=== PATIENT | male | born 1960 | race Caucasian/White ===

== ENCOUNTER 2017-06-09 19:29 | Emergency (ER) | payer BC, SELFPAY ==
[2017-06-09 19:32] VITALS: BMI 32.3
[2017-06-09 19:45] LABS: Basophils % 0.5 % (0.1-2.0); Eosinophils # 0.2 K/mm3 (0.0-0.4); Eosinophils % 2.3 % (0.1-12.0); Hematocrit 48.5 % (42.0-52.0); Hemoglobin 16.3 g/dL (14.1-18.0); Lymphocytes % 23.1 K/mm3 (10-50); Mean Corpuscular HGB Conc 33.7 g/dL (31.8-35.4); Mean Corpuscular Hemoglobin 30.1 pg (27.0-31.2); Mean Corpuscular Volume 89.4 fl (80-94); Monocytes # 0.5 K/mm3 (0.1-1.0); Monocytes % 5.7 % (1.7-9.3); Neutrophils # 5.8 K/mm3 (1.8-7.8); Neutrophils % 68.5 % (37.0-80.0); Platelet Count 212 K/mm3 (142-424); Red Blood Count 5.42 M/mm3 (4.60-6.20); Red Cell Distribution Width 13.2 % (11.5-17.5); White Blood Count 8.5 K/mm3 (4.8-10.8)
[2017-06-09 20:08] LABS: Alanine Aminotransferase 38 U/L (12-78); Albumin Level 3.7 gm/dL (3.4-5.0); Alkaline Phosphatase 61 U/L (46-116); Anion Gap 13.6 mEq/L (5-15); Aspartate Amino Transferase 20 U/L (15-37); Bilirubin,Total 0.7 mg/dL (0.2-1.0); Blood Urea Nitrogen 20 mg/dL (7-18); CKMB Relative Index 0.6 U/L (0-4.0); Calcium 8.7 mg/dL (8.5-10.1); Carbon Dioxide 27 mmol/L (21.0-32.0); Chloride 105 mmol/L (98-107); Creatine Kinase 99 U/L (39-308); Creatine Kinase MB 0.6 mg/ml (0.0-3.6); Creatinine Clearance Estimated 82 mL/min (0-300); Creatinine,Serum 1.33 mg/dL (0.70-1.30); Estimated Glomerular Filt Rate 55 ml/min (>60); GFR (African American) 67 ML/MIN (>60); Globulin 3.6 gm/dl (1.3-3.2); Glucose 93 mg/dL (74-106); Potassium 3.6 mmoL/L (3.5-5.1); Sodium 142 mmol/L (136-145); Total Protein,Serum 7.3 gm/dL (6.4-8.2); Troponin I < 0.02 ng/ml (0.00-0.06)
[2017-06-09 21:44] VITALS: BP 109/71; PULSE 55; RESP 18; TEMP 36.7; O2SAT 93; BMI 32.3
--- NOTE | 2017-06-09 21:57 | HMH.EDEXTP ---
ED Disposition Clinical Impression: Paresthesia, Left upper limb pain Disposition: Home, Self-Care Condition on Discharge: Good Instructions: DI for Arm Pain, DI for Numbness/tingling Additional Instructions: Please call your family physician in the morning and schedule a follow up appointment within the next 4-5 days. Referrals: Provider,Referral, [Primary Care Provider] - Time of Disposition: 21:57 - Critical Care Critical Care Time: No Attestation: On 06/09/17, the high probability of a clinically significant, sudden or life threatening deterioration of the following system(s) required my full and direct attention, intervention and personal management. The time I documented below is in addition to time spent performing reported procedures but includes the following listed in this critical care notation. Medical Decision Making - Medical Records Medical records reviewed: Yes: I reviewed the patient's medical records. Vital Signs: 06/09/17 21:44 06/10/17 01:34 Temperature 98.1 F 98.8 F Temperature Source Oral Oral Pulse Rate 78 Pulse Rate [Left Radial] 55 L Respiratory Rate 18 16 Blood Pressure 118/68 Blood Pressure [Right Arm] 109/71 Blood Pressure Mean [Right Arm] 83 Blood Pressure Source Automatic Cuff Blood Pressure Source [Right Arm] Automatic Cuff Blood Pressure Position Sitting Blood Pressure Position [Right Arm] Supine 02 Sat by Pulse Oximetry 93 L Oxygen Delivery Method Room Air Room Air - Lab Data Lab results reviewed: Yes: I reviewed the patient's lab results. Lab Results 06/09/17 19:40: WBC 8.5, RBC 5.42, Hgb 16.3, Hct 48.5, MCV 89.4, MCH 30.1, MCHC 33.7, RDW 13.2, Plt Count 212, MPV 10.0, Neut % (Auto) 68.5, Lymph % (Auto) 23.1, Grundy % (Auto) 5.7, Eos % (Auto) 2.3, Baso % (Auto) 0.5, Neut # (Auto) 5.8, Lymph # (Auto) 2.0, Grundy # (Auto) 0.5, Eos # (Auto) 0.2, Baso # (Auto) 0.0 06/09/17 19:40: Sodium 142, Potassium 3.6, Chloride 105, Carbon Dioxide 27, Anion Gap 13.6, BUN 20 H, Creatinine 1.33 H, Estimated Creat Clear 82, Estimated GFR 55 L, Est GFR ( Amer) 67, Glucose 93, Calcium 8.7, Total Bilirubin 0.7, AST 20, ALT 38, Alkaline Phosphatase 61, Total Creatine Kinase 99, CK-MB (CK-2) 0.6, CK-MB (CK-2) Rel Index 0.6, Troponin I < 0.02, Total Protein 7.3, Albumin 3.7, Globulin 3.6 H, Albumin/Globulin Ratio 1.0 L Result diagrams: 06/09/17 19:40 06/09/17 19:40 - CT Data CT Scan: Head Time Received: 21:[address] Reviewed: Yes: I have reviewed the patient's CT results, I have viewed the radiologist's interpretation Findings Narrative: CT head/brain wo con HISTORY: Left arm weakness and numbness ITS.REASON: left upper extremity weakness/numbness/pain ORDERING PHYSICIAN: Mckay Jacobsen MD PATIENT AGE: 57 years COMPARISON: None TECHNIQUE: Axial images obtained without contrast. Brain and bone windows reviewed. FINDINGS: No midline shift, mass effect, intracranial hemorrhage, hydrocephalus, or extra-axial fluid collection is evident. The calvarium has an unremarkable appearance. No mastoid effusion. Mild ethmoid and sphenoid sinus mucosal thickening. IMPRESSION: 1. No acute intracranial finding. 2. Mild sinus disease. 3. There is no evidence of intracranial hemorrhage, focal mass, or acute territorial infarction. A negative CT does not exclude an acute CVA. A follow-up head CT or MRI is recommended if neurological symptoms persist . - ECG Data Tracing #1 I reviewed this ECG and interpreted as documented below: ECG normal with no acute: arrhythmias, ischemia, conduction abnormalities, chamber hypertrophy Normal Sinus Rhythm: Yes - Kimo Inquiry Pt receiving controlled substance: No - Reevaluation(s) Time: 21:50 Reevaluation #1: Patient appears medically stable, in no acute distress, with no active complaints at this time. Admission offered, but declined. Patient advised to follow up with plant senior manager, Dr Jarvis Reeys with
--- NOTE | 2017-06-09 22:08 | CT_ITS ---
CT head/brain wo con HISTORY: Left arm weakness and numbness ITS.REASON: left upper extremity weakness/numbness/pain ORDERING PHYSICIAN: Mckay Jacobsen MD PATIENT AGE: 57 years COMPARISON: None TECHNIQUE: Axial images obtained without contrast. Brain and bone windows reviewed. FINDINGS: No midline shift, mass effect, intracranial hemorrhage, hydrocephalus, or extra-axial fluid collection is evident. The calvarium has an unremarkable appearance. No mastoid effusion. Mild ethmoid and sphenoid sinus mucosal thickening. IMPRESSION: 1. No acute intracranial finding. 2. Mild sinus disease. 3. There is no evidence of intracranial hemorrhage, focal mass, or acute territorial infarction. A negative CT does not exclude an acute CVA. A follow-up head CT or MRI is recommended if neurological symptoms persist .
[2017-06-10 01:34] VITALS: BP 118/68; PULSE 78; RESP 16; TEMP 37.1; O2SAT 100
== END 2017-06-10 00:45 | disposition home or self-care (01) ==
PROVIDERS: Emergency Provider Emergency Medicine
DX: R20.2 Paresthesia of skin (principal); M79.602 Pain in left arm; I10 Essential (primary) hypertension; Z87.891 Personal history of nicotine dependence; Z79.899 Other long term (current) drug therapy
CPT/HCPCS: 70450; 80053; 82550; 82553; 84484; 85025; 93005; 99282

== ENCOUNTER → 2021-06-08 13:30 | Outpatient (CLI) | payer BC, SELFPAY ==
[2021-06-08 18:15] LABS: Blood Urea Nitrogen 19 mg/dl (9-20); Estimated Glomerular Filt Rate 68 ml/min (>60); GFR (African American) 82 ML/MIN (>60)
== END ==
PROVIDERS: PCP Family Medicine; Visit Provider Surgery
DX: Z01.812 Encounter for preprocedural laboratory examination (principal)
CPT/HCPCS: 36415; 82565; 84520

== ENCOUNTER → 2021-06-16 09:00 | Outpatient (CLI) | payer BC, SELFPAY ==
--- NOTE | 2021-06-16 09:00 | CT_ITS ---
FINAL REPORT CLINICAL HISTORY: lt groin pain X6 MONTHS-1 YEAR. NO PRIOR FINDINGS: CT OF THE ABDOMEN AND PELVIS WITH CONTRAST Axial CT images of the abdomen and pelvis were obtained after the administration of IV contrast. Coronal reformatted images were also obtained and reviewed.This study was performed with techniques to keep radiation doses as low as reasonably achievable (ALARA). Individualized dose reduction techniques using automated exposure control or adjustment of mA and/or kV according to the patient's size were employed. Abdomen: The lung bases are clear. The heart is normal in size. The liver has an unremarkable appearance, without evidence of mass or biliary ductal dilatation. The gallbladder is unremarkable. The spleen is unremarkable. No adrenal mass is present. The pancreas has an unremarkable appearance. The left kidney is normal. There is a right renal cyst measuring 37 mm. There is no evidence of hydronephrosis. The aorta is normal in caliber. There is no free fluid or adenopathy. No mass or abnormal fluid collection is seen. Pelvis: The appendix is normal. The prostate is enlarged. The urinary bladder is unremarkable. No inflammatory process is seen. There is no evidence of mass or adenopathy. There is no evidence of bowel obstruction. IMPRESSION: No evidence of acute intra-abdominal process. 37 mm right renal cyst. Enlarged prostate. Reviewed, Interpreted and Dictated by Lai Martinez III, MD Transcribed by Margarita Murrell Authenticated by Lai Martinez III, MD on 06/16/2021 11:45:38 AM [facility]
== END ==
PROVIDERS: PCP Family Medicine; Visit Provider Surgery
DX: R10.32 Left lower quadrant pain (principal)
CPT/HCPCS: 74177; Q9967

== ENCOUNTER 2022-05-08 14:43 | Emergency (ER) | payer BC, SELFPAY ==
[2022-05-08 14:50] VITALS: BP 148/101; PULSE 78; RESP 19; TEMP 37.2; O2SAT 98; BMI 33.2
[2022-05-08 15:10] LABS: Apearance,Urine Clear (Clear); Bilirubin,Urine 1+ (Negative); Blood, Urine Negative (Negative); Color,Urine Dark Yellow (Yellow); Glucose,Urine (UA) Negative (Negative); Ketones,Urine Negative (Negative); PH,Urine 5.5 (5.0-8.5); Protein,Urine 1+ (Negative); UTC Leukocyte Esterase,Urine Negative (Negative); UTC Nitrate,Urine Negative (Negative); Urobilinogen,Urine 0.2 EU/dl (0.2)
--- NOTE | 2022-05-08 15:46 | EXP.UTC ---
Discharge Plan Disposition Patient Disposition: Home, Self-Care Condition: Good Prescriptions Prescriptions: New prednisone [prednisone] 20 mg tablet 20 mg PO BID Qty: 10 0RF No Action tamsulosin 0.4 MG capsule 1 cap PO DAILY Label Comments: aripiprazole 5 MG tablet 1 tab PO DAILY Label Comments: Referrals Follow up/Referrals: Matty Ko [Primary Care Provider] - See instructions Clinical Impressions Clinical Impression: Low back pain Instructions Patient Instructions: DI for Low Back Pain Discharge ED Provider: Jorge Luis ([facility])[place] [facility] [place] General Stated complaint: RT Back pain Mode of Arrival: Ambulatory Source of Information: Patient Limitations: No Limitations Time Seen by Provider: 05/08/22 15:47 Description of Symptoms (Recalled from Triage Doc. by RN): PATIENT C/O RIGHT LOWER BACK PAIN THAT STARTED SUDDENLY THIS MORNING. HE REPORTS THE PAIN STARTED INITIALLY IN HIS RLQ AND RADIATED TO HIS BACK. HE STATES THAT WHEN THE PAIN HIT IT MADE HIM NAUSEOUS AND DIZZY. HEENT Symptoms (Recalled from RN notes): No Resp Symptoms (Recalled from RN notes): No Skin Symptoms (Recalled from RN notes): No MS Symptoms (Recalled from RN notes): No Functional Status (Recalled from RN notes): WNL History of Present Illness Provider Complaint: 62 yr old male presents for low rt side back pain. Pt states pain started in left lower quad and when pain started he became soa, nauseous and dizzy but those symptoms pasted. then pain started in rt lower back. pt states he has arthritis. denies pain or issues urinating or with bowels Related Data Home Medications Medication Instructions Recorded Confirmed aripiprazole 5 mg tablet 1 tab PO DAILY Depression 06/09/17 06/23/21 tamsulosin 0.4 mg capsule 1 cap PO DAILY prostate 06/09/17 06/23/21 Previous Rx's Medication Instructions Recorded prednisone 20 mg tablet 20 mg PO BID #10 tabs 05/08/22 Allergies Allergy/AdvReac Type Severity Reaction Status Date / Time No Known Allergies Allergy Verified 06/23/21 10:32 Worker's Comp Is this a Worker's Comp case?: No [facility] Disclaimer: The information contained in this section may have been updated after the patient was seen, as this information can be updated by other users. 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 ROS Obtained: Yes All systems reviewed & no additional complaints except as documented Constitutional Constitutional: Reports system reviewed and no additional complaints, except as documented, Reports as per HPI, Denies body ache, Denies chills and Denies fever(s) Eyes Eyes: Reports system reviewed and no additional complaints, except as documented ENT Ears, Nose, Mouth, and Throat: Reports system reviewed and no additional complaints, except as documented Cardiovascular Cardiovascular: Reports system reviewed and no additional complaints, except as documented, Denies chest pain, Denies chest pain at rest, Denies dyspnea on exertion, Denies irregular heart rhythm, Denies orthopnea, Denies palpitations, Denies rapid heart rate and Denies slow heart rate Respiratory Respiratory: Reports system reviewed and no additional complaints, except as documented, Reports shortness of breath (earlier today) and Denies dyspnea on exertion Gastrointestinal Gastrointestingal: Reports system reviewed and no additional complaints, except as documented, as per HPI and nausea Genitourinary Male Genitourinary: Reports system reviewed and no additional complaints, except as documented and Reports as per HPI Musculoskeletal Musculoskeletal: Reports system reviewed and no additional complaints, except as documented, Reports as per HPI and Reports back pain Neurologic Neurologic: Report
[2022-05-08 15:50] VITALS: BP 148/101; PULSE 78; RESP 19; TEMP 37.2; O2SAT 98
== END 2022-05-08 15:53 | disposition home or self-care (01) ==
PROVIDERS: Emergency Provider Nurse Practitioner Family; PCP Family Medicine
DX: M54.50 Low back pain, unspecified (principal)
CPT/HCPCS: 81003; 99212; 99213; G0463

== ENCOUNTER 2022-08-27 10:37 | Emergency (ER) | payer BC, SELFPAY ==
[2022-08-27 10:50] VITALS: BP 147/90; PULSE 78; RESP 17; TEMP 36.6; O2SAT 98; BMI 34.0
--- NOTE | 2022-08-27 11:12 | EXP.UTC ---
Discharge Plan Disposition Patient Disposition: Home, Self-Care Condition: Good Prescriptions Prescriptions: New polymyxin B sulf-trimethoprim [Polytrim] 10,000 unit- 1 mg/mL drops 2 drp ophthalmic (eye) Q6H 7 Days Qty: 10 0RF Rx Instructions: left eye while awake; do not exceed 6 doses in 24 hours azithromycin [Zithromax Z-Donaldo] 250 mg tablet See Rx Instructions .ROUTE .COMPLEX 5 Days Qty: 6 0RF Rx Instructions: For 250 mg dose pack: take 500 mg today (day 1), then 250 mg for 4 days (days 2-5) prednisone [prednisone] 20 mg tablet 20 mg PO BID 5 Days Qty: 10 0RF No Action tamsulosin 0.4 MG capsule 1 cap PO DAILY Label Comments: aripiprazole 5 MG tablet 1 tab PO DAILY Label Comments: prednisone [prednisone] 20 mg tablet 20 mg PO BID Qty: 10 0RF losartan 50 mg tablet 50 mg PO DAILY Label Comments: TAKE 1 TABLET BY MOUTH EVERY DAY FOR BLOOD PRESSURE Referrals Follow up/Referrals: Matty Ko [Primary Care Provider] - See instructions Activity Restrictions/Add. Instructions Additional Instructions/Restrictions: *Monitor Temp, Over the counter Motrin or Tylenol as directed/as needed Tylenol every 4 hours and Motrin every 6 hours (as long as your family doctor has told you that you can take it) for fever or pain. and straight to ER if unable to lower temp less than 101.0 after medication given *Warm salt water gargles may help to soothe the throat *Throat Lozenges? *Warm fluids like tea with honey may help to soothe the throat? *Sleep elevated *Humidifier/Vaporizer Wash hands before and after applying eye drops Follow up with your Eye Doctor if no improvement or any worsening of symptoms Your throat swab was sent for culture. Those results are typically sent to your primary care. Be sure to follow up in 2-3 days with your family doctor/primary care physician if no improvement so they can review those result and treat if necessary. If you don?t have a primary care doctor, I recommend you get one but in the mean time, you will have to return to a walk in clinic Follow up IMMEDIATELY for new or worsening symptoms or no Noticeable improvement over the next 48-72 hours. 911 for difficulty breathing or swallowing Clinical Impressions Clinical Impression: Sinusitis, Conjunctivitis Stand Alone Forms Stand Alone Forms: Work/School Release Instructions Patient Instructions: Sinusitis, Conjunctivitis, DI for Sinusitis, DI for Conjunctivitis Discharge ED Provider: Bernadette Rivero [facility] [place] General Stated complaint: possible pink eye, sore throat Mode of Arrival: Ambulatory Source of Information: Patient Limitations: No Limitations Time Seen by Provider: 08/27/22 11:12 Description of Symptoms (Recalled from Triage Doc. by RN): sore throat, left eye has pink eye HEENT Symptoms (Recalled from RN notes): Yes Resp Symptoms (Recalled from RN notes): No Skin Symptoms (Recalled from RN notes): No MS Symptoms (Recalled from RN notes): No Functional Status (Recalled from RN notes): n/a History of Present Illness Provider Complaint: Patient state that he has been having sinus pain and pressure, sore throat and woke up yesterday with his left eye red and matted shut States that today he was still not feeling well so he came in to get checked Related Data Home Medications Medication Instructions Recorded Confirmed aripiprazole 5 mg tablet 1 tab PO DAILY Depression 06/09/17 08/27/22 tamsulosin 0.4 mg capsule 1 cap PO DAILY prostate 06/09/17 08/27/22 losartan 50 mg tablet 50 mg PO DAILY High blood pressure 08/27/22 08/27/22 Previous Rx's Medication Instructions Recorded prednisone 20 mg tablet 20 mg PO BID #10 tabs 05/08/22 azithromycin 250 mg tablet See Rx Instructions PO .COMPLEX 5 08/27/22 (Zithromax Z-Donaldo) days #6 tabs polymyxin B sulfate 10,000 2 drp ophthalmic (eye) Q6H 7 days 08/27/22 unit-trimethoprim 1 mg/mL eye #10 m
[2022-08-27 11:14] LABS: UTC Strep Screen (Rapid) Negative (Negative)
[2022-08-27 11:33] VITALS: BP 147/90; PULSE 78; RESP 17; TEMP 36.6; O2SAT 98
== END 2022-08-27 11:32 | disposition home or self-care (01) ==
PROVIDERS: Emergency Provider Nurse Practitioner; PCP Family Medicine
DX: J01.90 Acute sinusitis, unspecified (principal); H10.32 Unspecified acute conjunctivitis, left eye; J02.9 Acute pharyngitis, unspecified
CPT/HCPCS: 87880; 99212; 99214; G0463

== ENCOUNTER 2023-02-02 15:57 | Emergency (ER) | payer MEDICARE, BC, SELFPAY ==
[2023-02-02] VITALS (12 sets, daily range): BP systolic 79–123; BP diastolic 61–83; PULSE 64–77; RESP 13–23; TEMP 36.4; O2SAT 95–99; BMI 36.0
--- NOTE | 2023-02-02 15:54 | ECG_ITS ---
APPROVED REPORT Exam: Resting ECG HR:71 bpm ECG Measurements Heart Rate 71 AXES NC 137 P -37 QRSd 86 QRS 78 QT 388 T 24 QTc 411 Conclusion SINUS RHYTHM NONSPECIFIC ST & T-WAVE ABNORMALITY BORDERLINE ECG UNCONFIRMED REPORT Electronically signed by : Antione Campa MD 02/03/2023 07:30:45
[2023-02-02 17:12] LABS: Basophils # 0.1 K/mm3 (0-0.2); Basophils % 0.5 % (0.1-2.0); Chloride 102 mmol/L (98-107); Eosinophils # 0.1 K/mm3 (0.0-0.4); Eosinophils % 1.1 % (0.1-12.0); Hematocrit 52.2 % (42.0-52.0); Hemoglobin 16.9 g/dL (14.1-18.0); Lymphocytes # 2.5 K/mm3 (0.7-4.5); Mean Corpuscular HGB Conc 32.4 g/dL (31.8-35.4); Mean Corpuscular Volume 92.4 fl (80-94); Monocytes # 0.7 K/mm3 (0.1-1.0); Monocytes % 6.6 % (1.7-9.3); Neutrophils # 7.1 K/mm3 (1.8-7.8); Neutrophils % 67.7 % (37.0-80.0); Platelet Count 244 K/mm3 (142-424); Red Blood Count 5.65 M/mm3 (4.60-6.20); White Blood Count 10.5 K/mm3 (4.8-10.8)
[2023-02-02 17:13] LABS: Potassium 3.8 mmoL/L (3.5-5.1); Sodium 141 mmol/L (136-145)
[2023-02-02 17:15] LABS: Alanine Aminotransferase 41 U/L (12-78); Alkaline Phosphatase 41 U/L (38-126); Anion Gap 13.8 mEq/L (5-15); Aspartate Amino Transferase 37 U/L (17-59); Bilirubin,Total 0.9 mg/dl (0.2-1.3); Blood Urea Nitrogen 30 mg/dl (9-20); Carbon Dioxide 29 mmol/L (22.0-30.0); Creatinine Clearance Estimated 76 mL/min (50-200); Estimated Glomerular Filt Rate 47 ml/min (>60); GFR (African American) 57 ML/MIN (>60)
[2023-02-02 17:16] LABS: Albumin/Globulin Ratio 1.2 (1.1-1.8); Calcium 8.8 mg/dl (8.4-10.2); Globulin 3.3 g/dL (1.3-3.2); Glucose 115 mg/dl (74-100); Total Protein,Serum 7.3 g/dl (6.3-8.2)
[2023-02-02 17:45] LABS: Free T4 (Free Thyroxine) 1.13 ng/dl (0.78-2.19)
[2023-02-02 17:57] LABS: Magnesium 1.8 mg/dl (1.6-2.3); Phosphorous 4.2 mg/dl (2.5-4.5)
--- NOTE | 2023-02-02 18:02 | PC.NURSE ---
contacted lab to check on status of troponin results- lab states approx 8 minutes left until results.
[2023-02-02 18:11] LABS: Troponin I < 0.01 ng/ml (0.00-0.034)
[2023-02-02 18:28] LABS: Thyroid Stimulating Hormone 2.71 uIU/mL (0.465-4.68)
[2023-02-02 18:56] LABS: Troponin I < 0.01 ng/ml (0.00-0.034)
--- NOTE | 2023-02-03 14:20 | HMH.EDGENADL ---
Discharge Plan Disposition Patient Disposition: Home, Self-Care Condition: Good Prescriptions Prescriptions: No Action tamsulosin 0.4 MG capsule 1 cap PO DAILY Patient Comments: aripiprazole 5 MG tablet 1 tab PO DAILY Patient Comments: prednisone [prednisone] 20 mg tablet 20 mg PO BID Qty: 10 0RF losartan 50 mg tablet 50 mg PO DAILY Patient Comments: TAKE 1 TABLET BY MOUTH EVERY DAY FOR BLOOD PRESSURE polymyxin B sulf-trimethoprim [Polytrim] 10,000 unit- 1 mg/mL drops 2 drp ophthalmic (eye) Q6H 7 Days Qty: 10 0RF Rx Instructions: left eye while awake; do not exceed 6 doses in 24 hours azithromycin [Zithromax Z-Donaldo] 250 mg tablet See Rx Instructions .ROUTE .COMPLEX 5 Days Qty: 6 0RF Rx Instructions: For 250 mg dose pack: take 500 mg today (day 1), then 250 mg for 4 days (days 2-5) prednisone [prednisone] 20 mg tablet 20 mg PO BID 5 Days Qty: 10 0RF Referrals Follow up/Referrals: Matty Ko [Primary Care Provider] - See instructions Activity Restrictions/Add. Instructions Additional Instructions/Restrictions: Please return to the emergency department if you experience any new or worsening symptoms. Please follow up with your PCP for recommendations regarding BP medication Clinical Impressions Clinical Impression: Orthostatic hypotension Stand Alone Forms Stand Alone Forms: Work/School Release Instructions Patient Instructions: DI for Syncope in Adults (Fainting), DI for Syncope in Children (Fainting) Discharge ED Provider: Saeed Medel Adult HPI General Chief complaint: Syncope Stated complaint: Syncopal episode Time Seen by Provider: 02/02/23 16:00 Mode of Arrival: EMS Source of Information: Patient Limitations: No Limitations Description of Symptoms (Recalled from ER Triage Doc. by RN): 62 yo M presents to ED with EMS for syncopal episode. EMS reports pt was at work walking, norma weak and dizzy, and almost fell to the ground. coworkers were able to lower pt to the ground, so he did not fall or hit his head. pt reports he had heart cath approx last week. pt has recent med changes associated with that. History of Present Illness HPI narrative: The patient presents with a chief complaint of syncope at work. 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 The patient regained consciousness at 3:15 PM. The patient denies any chest pain or palpitations during the episode. The patient has a history of a recent heart catheterization performed last Tuesday, which revealed arterial hardening but no blockages. The patient was started on blood pressure medication due to elevated blood pressure. The patient reports poor hydration habits and works in an air-conditioned environment where they stand all day. The patient's blood sugar was measured at 103 by EMS, and their blood pressure was initially low at 87/55 but increased to 113/75 upon arrival at the hospital. The patient denies any prior similar symptoms. The patient currently reports generalized weakness but no numbness. Related Data Home Medications Medication Instructions Recorded Confirmed aripiprazole 5 mg tablet 1 tab PO DAILY Depression 06/09/17 08/27/22 tamsulosin 0.4 mg capsule 1 cap PO DAILY prostate 06/09/17 08/27/22 losartan 50 mg tablet 50 mg PO DAILY High blood pressure 08/27/22 08/27/22 Previous Rx's Medication Instructions Recorded prednisone 20 mg tablet 20 mg PO BID #10 tabs 05/08/22 azithromycin 250 mg tablet See Rx Instructions PO .COMPLEX 5 08/27/22 (Zithromax Z-Donaldo) days #6 tabs polymyxin B sulfate 10,000 2 drp ophthalmic (eye) Q6H 7 days 08/27/22 unit-trimethoprim 1 mg/mL eye #10 mL drops (Polytrim) prednisone 20 mg tablet 20 mg PO BID 5 days #10 tabs 08/27/22 Allergies Allergy/AdvReac Type Severity Reaction Status Date / Time No Known Allergies Allergy Verified 02/02/23 16:06 [facility] Disclaimer: The information contained in this section may have been updated after the patient was seen, as this information can be updated by other users. 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 ROS Obtained: Yes Systems reviewed as appropriate & no additional complaints except as documented Physical Exam General General appearance: alert and in no apparent distress Head Head exam: atraumatic and normocephalic Eye Eye exam: Present normal appearance Neck Neck exam: Present normal inspection Chest Chest inspection: Present normal inspection and symmetric chest wall rise Respiratory Respiratory exam: Present normal lung sounds bilaterally; Absent respiratory distress Cardiovascular Cardiovascular exam: Present regular rate and normal rhythm Abdominal Exam Abdominal exam: Present soft Neurological Exam Neurological exam: Present alert and oriented X3 Psychiatric Psychiatric exam: Present normal affect and normal mood Skin Skin exam: Present warm and dry Medical Decision Making Medical Records Medical records reviewed: Yes I reviewed the patient's medical records. Kimo Inquiry Pt receiving controlled substance: No Vital Signs: 02/02/23 15:58 02/02/23 16:00 02/02/23 16:30 Temperature 97.6 F Temperature Source Oral Pulse Rate 71 70 Pulse Rate [Left Radial] 70 Respiratory Rate 17 14 20 Blood Pressure 100/81 L 101/68 L Blood Pressure [Right Arm] 115/76 Blood Pressure Mean Blood Pressure Mean [Right Arm] 89 02 Sat by Pulse Oximetry 98 98 96 02/02/23 17:00 02/02/23 17:08 02/02/23 17:10 Temperature Temperature Source Pulse Rate 69 68 70 Pulse Rate [Left Radial] Respiratory Rate 18 22 23 Blood Pressure 101/68 L 79/61 L 92/64 L Blood Pressure [Right Arm] Blood Pressure Mean Blood Pressure Mean [Right Arm] 02 Sat by Pulse Oximetry 97 99 97 02/02/23 17:30 02/02/23 18:00 02/02/23 18:30 Temperature Temperature Source Pulse Rate 64 66 74 Pulse Rate [Left Radial] Respiratory Rate 18 17 20 Blood Pressure 106/73 L 113/81 120/83 Blood Pressure [Right Arm] Blood Pressure Mean 81 Blood Pressure Mean [Right Arm] 02 Sat by Pulse Oximetry 97 96 95 02/02/23 19:00 02/02/23 19:30 02/02/23 19:49 Temperature 97.6 F Temperature Source Oral Pulse Rate 77 72 75 Pulse Rate [Left Radial] Respiratory Rate 17 13 18 Blood Pressure 116/75 121/81 123/74 Blood Pressure [Right Arm] Blood Pressure Mean 84 Blood Pressure Mean [Right Arm] 02 Sat by Pulse Oximetry 95 97 Lab Data Lab Results 02/02/23 16:00: WBC 10.5, RBC 5.65, Hgb 16.9, Hct 52.2 H, MCV 92.4, MCH 30.0, MCHC 32.4, RDW 14.0, Plt Count 244, MPV 11.0 H, Neut % (Auto) 67.7, Lymph % (Auto) 24.0, [place] % (Auto) 6.6, Eos % (Auto) 1.1, Baso % (Auto) 0.5, Neut # (Auto) 7.1, Lymph # (Auto) 2.5, [place] # (Auto) 0.7, Eos # (Auto) 0.1, Baso # (Auto) 0.1, Sodium 141, Potassium 3.8, Chloride 102, Carbon Dioxide 29, Anion Gap 13.8, BUN 30 H, Creatinine 1.50 H, Estimated Creat Clear 76, Estimated GFR 47 L, Est GFR ( Amer) 57 L, Glucose 115 H, Calcium 8.8, Phosphorus 4.2, Magnesium 1.8, Total Bilirubin 0.9, AST 37, ALT 41, Alkaline Phosphatase 41, Troponin I < 0.01, Total Protein 7.3, Albumin 4.0, Globulin 3.3 H, Albumin/Globulin Ratio 1.2, TSH 2.71, Free T4 1.13 02/02/23 18:17: Troponin I < 0.01 02/02/23 16:00 02/02/23 16:00 Orders (Tests/Meds): ED MEDICATIONS Discontinued Medications Generic Name Dose Route Start Last Admin Trade Name Freq PRN Reason Stop Dose Admin Sodium Chloride 10 ml 02/02/23 16:43 Sodium Chloride 0.9% 10ml Flush Syringe IV 03/04/23 16:42 NEEDED PRN Maintain IV Site ORDERS Category Date Time Status Complete Blood Count Auto Diff Stat Lab 02/02/23 16:00 Completed Comprehensive Metabolic Panel Stat Lab 02/02/23 16:00 Completed Free T4 (Free Thyroxine) Stat Lab 02/02/23 16:00 Completed MAG [Magnesium] Stat Lab 02/02/23 16:00 Completed PHOS [Phosphorous] Stat Lab 02/02/23 16:00 Completed TSH [Thyroid Stimulating Hormone] Stat Lab 02/02/23 16:00 Completed Troponin I Q2H Lab 02/02/23 16:00 Completed Troponin I Q2H Lab 02/02/23 18:17 Completed ECG initial Besson Routine Y 02/02/23 15:54 Completed Medical Decision Narrative: Patient with history and exam per above presenting for evaluation of syncopal event, precipitated by standing up and with recent changes in blood pressure medication Diagnoses considered include Conduction abnormality including long QT, Rdbyp-[id number]-Akuyd, heart block, tachydysrhythmia, sinus node dysfunction, aortic stenosis, HOCM, ACS, pulmonary embolism, carotid stenosis, ruptured AAA, orthostatic hypotension, hypoglycemia, hyperkalemia, anemia ED workup and treatment included: ED MEDICATIONS Discontinued Medications Generic Name Dose Route Start Last Admin Trade Name Freq PRN Reason Stop Dose Admin Sodium Chloride 10 ml 02/02/23 16:43 Sodium Chloride 0.9% 10ml Flush Syringe IV 03/04/23 16:42 NEEDED PRN Maintain IV Site ORDERS Category Date Time Status Complete Blood Count Auto Diff Stat Lab 02/02/23 16:00 Completed Comprehensive Metabolic Panel Stat Lab 02/02/23 16:00 Completed Free T4 (Free Thyroxine) Stat Lab 02/02/23 16:00 Completed MAG [Magnesium] Stat Lab 02/02/23 16:00 Completed PHOS [Phosphorous] Stat Lab 02/02/23 16:00 Completed TSH [Thyroid Stimulating Hormone] Stat Lab 02/02/23 16:00 Completed Troponin I Q2H Lab 02/02/23 16:00 Completed Troponin I Q2H Lab 02/02/23 18:17 Completed ECG initial Besson Routine Y 02/02/23 15:54 Completed Labs were independently interpreted by me, significant for no leukocytosis, no acute anemia, creatinine approximately baseline at 1.5, troponins undetectable x2 EKG was independently visualized and interpreted by me, significant for normal axis, normal sinus rhythm, no acute ST changes Symptoms at this time are thought to be most consistent with medication induced orthostatic hypotension Patient had improvement of symptoms after fluids and repeat evaluation I discussed my clinical impression with patient and answered all questions. At this time, given reassuring workup and exam, I discussed that I have a low index of suspicion for any acute pathology necessitating inpatient management. Specific return precautions were given, with understanding and agreement. Patient will follow up with primary care provider. He will decrease dose of blood pressure medications and follow-up closely with primary care provider Critical Care Critical Care Time Critical Care Time: No
== END 2023-02-02 19:50 | disposition home or self-care (01) ==
PROVIDERS: Emergency Provider Emergency Medicine; PCP Family Medicine
DX: I95.1 Orthostatic hypotension; R53.1 Weakness
CPT/HCPCS: 80053; 83735; 84100; 84439; 84443; 84484; 85025; 93005; 99283

== ENCOUNTER 2023-05-25 16:32 | Emergency (ER) | payer MEDICARE, BC, SELFPAY ==
[2023-05-25 16:34] VITALS: BP 122/87; PULSE 69; RESP 15; TEMP 36.9; O2SAT 94; BMI 37.5
--- NOTE | 2023-05-25 17:37 | ECG_ITS ---
APPROVED REPORT Exam: Resting ECG HR:65 bpm ECG Measurements Heart Rate 65 AXES NC 149 P 62 QRSd 93 QRS 70 QT 400 T 45 QTc 411 Conclusion SINUS RHYTHM NORMAL ECG UNCONFIRMED REPORT Electronically signed by : Antione Campa MD 05/27/2023 14:40:25
--- NOTE | 2023-05-25 18:41 | HMH.EDGENADL ---
Discharge Plan Disposition Patient Disposition: Home, Self-Care Prescriptions Prescriptions: No Action tamsulosin 0.4 MG capsule 1 cap PO DAILY Patient Comments: aripiprazole 5 MG tablet 1 tab PO DAILY Patient Comments: prednisone [prednisone] 20 mg tablet 20 mg PO BID Qty: 10 0RF losartan 50 mg tablet 50 mg PO DAILY Patient Comments: TAKE 1 TABLET BY MOUTH EVERY DAY FOR BLOOD PRESSURE polymyxin B sulf-trimethoprim [Polytrim] 10,000 unit- 1 mg/mL drops 2 drp ophthalmic (eye) Q6H 7 Days Qty: 10 0RF Rx Instructions: left eye while awake; do not exceed 6 doses in 24 hours azithromycin [Zithromax Z-Donaldo] 250 mg tablet See Rx Instructions .ROUTE .COMPLEX 5 Days Qty: 6 0RF Rx Instructions: For 250 mg dose pack: take 500 mg today (day 1), then 250 mg for 4 days (days 2-5) prednisone [prednisone] 20 mg tablet 20 mg PO BID 5 Days Qty: 10 0RF Referrals Follow up/Referrals: Matty Ko [Primary Care Provider] - See instructions Activity Restrictions/Add. Instructions Additional Instructions/Restrictions: At this time it was felt you are safe to be discharged home. If new or worsening symptoms please do not hesitate to return the emergency department. If symptoms persist please follow-up with your family doctor as you are able. Clinical Impressions Clinical Impression: Muscle cramping Discharge ED Provider: Vinny Hoffman General Adult HPI General Chief complaint: Weakness Stated complaint: low BP Time Seen by Provider: 05/25/23 18:00 Mode of Arrival: Ambulatory Source of Information: Patient Limitations: No Limitations Description of Symptoms (Recalled from ER Triage Doc. by RN): 63 yo M presents to ED with c/o low blood pressure. pt was at work and began to feel cramping in his right forearm. pt reports it lasted approx 5 mins. after that he went to nurses station, nurse at work checked pts BP and it was 79/43. pt reports that he sat down for approx 15-20 mins and his BP reading was 123/84. pt reports feeling weakness and lethargy. History of Present Illness HPI narrative: Patient is a 63-year-old male with past medical history of hypertension presents emergency department for evaluation of cramping in his arm. History is obtained by patient at bedside. Patient had a cramp in his arm at work in his right forearm lasting approximately 10 minutes. He presented to the nursing station where he was found that his blood pressure was low and he was transported here for continued evaluation. He does have a history of recurrent syncope that has been investigated by cardiology and has a heart monitor on. Denies trauma. No other acute complaints at this time. Related Data Home Medications Medication Instructions Recorded Confirmed aripiprazole 5 mg tablet 1 tab PO DAILY Depression 06/09/17 08/27/22 tamsulosin 0.4 mg capsule 1 cap PO DAILY prostate 06/09/17 08/27/22 losartan 50 mg tablet 50 mg PO DAILY High blood pressure 08/27/22 08/27/22 Previous Rx's Medication Instructions Recorded prednisone 20 mg tablet 20 mg PO BID #10 tabs 05/08/22 azithromycin 250 mg tablet See Rx Instructions PO .COMPLEX 5 08/27/22 (Zithromax Z-Donaldo) days #6 tabs polymyxin B sulfate 10,000 2 drp ophthalmic (eye) Q6H 7 days 08/27/22 unit-trimethoprim 1 mg/mL eye #10 mL drops (Polytrim) prednisone 20 mg tablet 20 mg PO BID 5 days #10 tabs 08/27/22 Allergies Allergy/AdvReac Type Severity Reaction Status Date / Time No Known Allergies Allergy Verified 02/02/23 16:06 [facility] Disclaimer: The information contained in this section may have been updated after the patient was seen, as this information can be updated by other users. 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 Obtained: Yes Systems reviewed as appropriate & no additional complaints except as documented Physical Exam General General appearance: alert and in no apparent distress Head Head exam: atraumatic and normocephalic Eye Eye exam: Present PERRL and EOMI ENT ENT exam: Present mucous membranes moist Neck Neck exam: Present normal inspection Chest Chest inspection: Present normal inspection and symmetric chest wall rise Respiratory Respiratory exam: Present normal lung sounds bilaterally; Absent respiratory distress Cardiovascular Cardiovascular exam: Present regular rate and normal rhythm Abdominal Exam Abdominal exam: Present soft Extremities Exam Extremities exam: Present normal inspection and other (5 out of 5 strength bilateral upper and lower extremities) Neurological Exam Neurological exam: Present alert and CN II-XII intact; Absent motor sensory deficit Psychiatric Psychiatric exam: Present normal affect Skin Skin exam: Present warm and dry Medical Decision Making Kimo Inquiry Pt receiving controlled substance: No Vital Signs: 05/25/23 16:34 05/25/23 18:45 05/25/23 19:42 Temperature 98.5 F 98.5 F Temperature Source Oral Oral Pulse Rate 66 61 Pulse Rate [Left Radial] 69 Respiratory Rate 15 15 Blood Pressure 131/91 H 129/87 Blood Pressure [Right Arm] 122/87 Blood Pressure Mean [Right Arm] 98 02 Sat by Pulse Oximetry 94 L 95 Oxygen Delivery Method Room Air Room Air Lab Data Lab Results 05/25/23 17:30: WBC 10.0, RBC 5.13, Hgb 16.0, Hct 46.4, MCV 90.4, MCH 31.2, MCHC 34.5, RDW 14.5, Plt Count 197, MPV 10.5 H, Neut % (Auto) 70.2, Lymph % (Auto) 20.6, [place] % (Auto) 6.9, Eos % (Auto) 1.6, Baso % (Auto) 0.7, Neut # (Auto) 7.0, Lymph # (Auto) 2.1, [place] # (Auto) 0.7, Eos # (Auto) 0.2, Baso # (Auto) 0.1, Sodium 137, Potassium 3.5, Chloride 104, Carbon Dioxide 27, Anion Gap 9.5, BUN 16, Creatinine 1.00, Estimated Creat Clear 117, Estimated GFR 75, Est GFR ( Amer) 91, Glucose 96, Calcium 8.3 L, Magnesium 1.9, Total Bilirubin 0.7, AST 32, ALT 30, Alkaline Phosphatase 50, Total Protein 6.6, Albumin 3.6, Globulin 3.0, Albumin/Globulin Ratio 1.2, TSH 1.94, Thyroxine (T4) 8.9 05/25/23 17:30 05/25/23 17:30 Orders (Tests/Meds): ORDERS Category Date Time Status CBC w/Auto Diff [Complete Blood Count Auto Diff] Stat Lab 05/25/23 17:30 Completed CMP [Comprehensive Metabolic Panel] Stat Lab 05/25/23 17:30 Completed MG [Magnesium] Stat Lab 05/25/23 17:30 Completed T4 (Thyroxine) Stat Lab 05/25/23 17:30 Completed TSH [Thyroid Stimulating Hormone] Stat Lab 05/25/23 17:30 Completed ECG initial Besson Routine Y 05/25/23 17:37 Completed ECG Data Tracing #1: Independently interpreted by me, rate is 65, rhythm is regular, axis normal, no ST elevation in anatomical contiguous leads, QTc 411. Medical Decision Narrative: In summary patient is a 63-year-old male with past medical history described above who presents emergency department for evaluation of pain and cramping and hypotension. Patient is hemodynamically stable nontoxic-appearing upon arrival, afebrile, normotensive. Patient has a nonfocal neurologic exam, no ongoing cramps. Differential includes critical electrolyte abnormality, among others. Workup will be conducted with hematologic labs. No additional interventions are indicated. Workup for CVA was considered but given nonfocal neurologic exam and no focal weakness or deficits will be deferred. Workup reviewed by me, hematologic labs are nonactionable. Patient had no episodes of hypotension in the emergency department. Given this it was felt that emergent causes of arm cramping were ruled out at this time patient is appropriate for outpatient management. Critical Care Critical Care Time Critical Care Time: No
[2023-05-25 18:45] VITALS: BP 131/91; PULSE 66; O2SAT 95
--- NOTE | 2023-05-25 18:57 | PC.NURSE ---
called lab spoke with Jefry states 10-11 minutes before labs will be back
[2023-05-25 18:59] LABS: Basophils # 0.1 K/mm3 (0-0.2); Basophils % 0.7 % (0.1-2.0); Eosinophils # 0.2 K/mm3 (0.0-0.4); Eosinophils % 1.6 % (0.1-12.0); Hematocrit 46.4 % (42.0-52.0); Lymphocytes # 2.1 K/mm3 (0.7-4.5); Lymphocytes % 20.6 % (10-50); Mean Corpuscular HGB Conc 34.5 g/dL (31.8-35.4); Mean Corpuscular Hemoglobin 31.2 pg (27.0-31.2); Mean Corpuscular Volume 90.4 fl (80-94); Mean Platelet Volume 10.5 fl (7.4-10.4); Monocytes # 0.7 K/mm3 (0.1-1.0); Monocytes % 6.9 % (1.7-9.3); Neutrophils % 70.2 % (37.0-80.0); Platelet Count 197 K/mm3 (142-424); Red Blood Count 5.13 M/mm3 (4.60-6.20); Red Cell Distribution Width 14.5 % (11.5-17.5)
[2023-05-25 19:00] LABS: Alanine Aminotransferase 30 U/L (12-78); Albumin Level 3.6 g/dl (3.5-5.0); Albumin/Globulin Ratio 1.2 (1.1-1.8); Alkaline Phosphatase 50 U/L (38-126); Anion Gap 9.5 mEq/L (5-15); Aspartate Amino Transferase 32 U/L (17-59); Bilirubin,Total 0.7 mg/dl (0.2-1.3); Blood Urea Nitrogen 16 mg/dl (9-20); Calcium 8.3 mg/dl (8.4-10.2); Carbon Dioxide 27 mmol/L (22.0-30.0); Chloride 104 mmol/L (98-107); Creatinine Clearance Estimated 117 mL/min (50-200); Estimated Glomerular Filt Rate 75 ml/min (>60); GFR (African American) 91 ML/MIN (>60); Glucose 96 mg/dl (74-100); Magnesium 1.9 mg/dl (1.6-2.3); Potassium 3.5 mmoL/L (3.5-5.1); Sodium 137 mmol/L (136-145); Total Protein,Serum 6.6 g/dl (6.3-8.2)
[2023-05-25 19:42] VITALS: BP 129/87; PULSE 61; RESP 15; TEMP 36.9; O2SAT 95
[2023-05-25 20:47] LABS: T4 (Thyroxine) 8.9 ug/dl (5.53-11.0)
[2023-05-25 21:01] LABS: Thyroid Stimulating Hormone 1.94 uIU/mL (0.465-4.68)
== END 2023-05-25 19:45 | disposition home or self-care (01) ==
PROVIDERS: Emergency Provider Emergency Medicine; PCP Family Medicine
DX: I95.9 Hypotension, unspecified (principal); R53.1 Weakness; R25.2 Cramp and spasm
CPT/HCPCS: 80053; 83735; 84436; 84443; 85025; 93005; 99285

== ENCOUNTER 2023-07-04 06:52 | Outpatient (CLI) | payer MEDICARE, BC, SELFPAY ==
--- NOTE | 2023-07-04 07:30 | MR_ITS ---
FINAL REPORT CLINICAL HISTORY: seizure protocol. EPISODES OF PASSING OUT. DIZZINESS AND BLURRED VISION, OVERALL WEAKNESS. COMPARISON: None FINDINGS: Multiplanar MR imaging of the brain was performed without and with contrast. There is mild age-appropriate atrophy. Scattered foci of increased T2 signal are seen in the cerebral white matter that have a nonspecific appearance but likely represent mild chronic ischemic/gliotic changes. There is no evidence of intracranial hemorrhage or mass. No abnormal ventricular dilatation is identified. There is no evidence of shift of the midline structures. No abnormal extra-axial fluid collection is seen. No area of abnormal restricted diffusion is identified. The posterior fossa and brainstem have an unremarkable appearance. No abnormal contrast enhancement is seen. Normal major vessel vascular flow voids are seen. IMPRESSION: Mild atrophy and chronic ischemic/gliotic changes. No acute intracranial abnormality. Reviewed, Interpreted and Dictated by Lai Martinez III, MD Transcribed by Yisel Mello Authenticated and [facility]
[2023-07-04 07:45] LABS: Blood Urea Nitrogen 19 mg/dl (9-20); Estimated Glomerular Filt Rate 75 ml/min (>60); GFR (African American) 91 ML/MIN (>60)
[2023-07-04 07:58] LABS: C-Reactive Protein 10.9 mg/L (0-4)
[2023-07-04 08:14] LABS: Erythrocyte Sedimentation Rate 12 mm/hr (0-20)
[2023-07-04] MEDS: SODIUM CHLORIDE 0.9% 10ML SYR (RAD ONLY) 10 ML IV (08:18)
[2023-07-04] MEDS: GADOTERIDOL INJ 17ML SYRINGE 22 ML IV (08:19)
[2023-07-04 08:58] LABS: Vitamin B12 327 pg/mL (239-931)
[2023-07-04 08:59] LABS: Folate 7.49 ng/mL
[2023-07-05 12:43] LABS: Rapid Plasma Reagin Ab Titer Non Reactive titer (NonRea<1:1)
== END 2023-07-04 23:59 | disposition home or self-care (01) ==
PROVIDERS: PCP Family Medicine; Visit Provider Nurse Practitioner Family
DX: R55 Syncope and collapse (principal); Z79.899 Other long term (current) drug therapy
CPT/HCPCS: 36415; 70553; 82565; 82607; 82746; 84443; 84520; 85651; 86140; 86593; A9576

== ENCOUNTER 2023-09-05 13:27 | Emergency (ER) | payer MEDICARE, BC, SELFPAY ==
[2023-09-05] VITALS (10 sets, daily range): BP systolic 90–133; BP diastolic 60–94; PULSE 69–70; RESP 15–18; TEMP 36.3–36.7; O2SAT 93–98; BMI 37.7
--- NOTE | 2023-09-05 13:28 | ECG_ITS ---
APPROVED REPORT Exam: Resting ECG HR:69 bpm ECG Measurements Heart Rate 69 AXES AL 162 P 130 QRSd 88 QRS 43 QT 384 T 36 QTc 403 Conclusion ELECTRONIC ATRIAL PACEMAKER NONSPECIFIC T-WAVE ABNORMALITY ABNORMAL RHYTHM ECG UNCONFIRMED REPORT Electronically signed by : ABIODUN TREVIÑO, 09/07/2023 05:26:19
--- NOTE | 2023-09-05 13:37 | PC.NURSE ---
[id number] per EMS
[2023-09-05 13:46] LABS: Basophils # 0.1 K/mm3 (0-0.2); Basophils % 0.8 % (0.1-2.0); Eosinophils # 0.1 K/mm3 (0.0-0.4); Eosinophils % 0.7 % (0.1-12.0); Hematocrit 51.1 % (42.0-52.0); Hemoglobin 16.8 g/dL (14.1-18.0); Lymphocytes # 1.9 K/mm3 (0.7-4.5); Lymphocytes % 18.6 % (10-50); Mean Corpuscular Hemoglobin 30.1 pg (27.0-31.2); Mean Corpuscular Volume 91.4 fl (80-94); Mean Platelet Volume 9.6 fl (7.4-10.4); Monocytes # 0.6 K/mm3 (0.1-1.0); Monocytes % 5.6 % (1.7-9.3); Neutrophils # 7.6 K/mm3 (1.8-7.8); Neutrophils % 74.3 % (37.0-80.0); Platelet Count 245 K/mm3 (142-424); Red Blood Count 5.59 M/mm3 (4.60-6.20); Red Cell Distribution Width 14.8 % (11.5-17.5); White Blood Count 10.2 K/mm3 (4.8-10.8)
--- NOTE | 2023-09-05 13:53 | PC.NURSE ---
Dr. Hoffman at BS for pt eval
[2023-09-05 13:56] LABS: Chloride 107 mmol/L (98-107); Potassium 3.6 mmoL/L (3.5-5.1); Sodium 139 mmol/L (136-145)
--- NOTE | 2023-09-05 13:56 | XR_ITS ---
FINAL REPORT TECHNIQUE: Single view chest CLINICAL HISTORY: syncope FINDINGS: A single view of the chest was obtained. The heart is enlarged. There is a left subclavian pacemaker in place. There are mild bibasilar opacities which represent atelectasis or pneumonia. There is no pneumothorax. Osseous structures are unremarkable. IMPRESSION: No acute cardiopulmonary process. Reviewed, Interpreted and Dictated by Lai Martinez III, MD Transcribed by Rosette Wells Authenticated and [facility]
--- NOTE | 2023-09-05 13:57 | ED_ITS ---
Discharge Plan Disposition Patient Disposition: Home, Self-Care Chief Complaint: Syncope Prescriptions Prescriptions: No Action famotidine 20 mg tablet 20 mg PO DAILY Patient Comments: TAKE 1 TABLET BY MOUTH TWICE DAILY FOR HEARTBURN OR GERD amlodipine 5 mg tablet 5 mg PO DAILY Patient Comments: TAKE 1 TABLET BY MOUTH EVERY DAY FOR BLOOD PRESSURE aspirin 81 mg tablet,delayed release (DR/EC) 81 mg PO DAILY atorvastatin 10 mg tablet 10 mg PO HS Patient Comments: TAKE 1 TABLET BY MOUTH DAILY tamsulosin 0.4 MG capsule 1 cap PO DAILY Patient Comments: aripiprazole 5 MG tablet 1 tab PO DAILY Patient Comments: losartan 50 mg tablet 50 mg PO DAILY Patient Comments: TAKE 1 TABLET BY MOUTH EVERY DAY FOR BLOOD PRESSURE Referrals Follow up/Referrals: Matty Ko [Primary Care Provider] - See instructions Activity Restrictions/Add. Instructions Additional Instructions/Restrictions: At this time it was felt you are safe to be discharged home. If new or worsening symptoms please do not hesitate to return the emergency department. Please follow-up with your it communications specialist as discussed and have your kidney function rechecked as well. Clinical Impressions Clinical Impression: Syncope, DONA (acute kidney injury) Instructions Patient Instructions: DI for Syncope in Adults (Fainting) Discharge ED Provider: Vinny Hoffman General Adult HPI General Chief complaint: Syncope Stated complaint: syncope Time Seen by Provider: 09/05/23 13:29 Mode of Arrival: EMS Source of Information: EMS Limitations: No Limitations Description of Symptoms (Recalled from ER Triage Doc. by RN): pt presents by EMS after having a syncopal episode at work. per report pt states he was working when he started to experience light headedness and seeing spots. pt states he has been having syncopal episodes since May. pt reports he had a pacemaker placed in June by Dr. Goldstein, [facility]. pt denies any chest pain. pt denies any injury. pt states once he felt the s/s coming on he sat himself down to the floor. History of Present Illness HPI narrative: Patient is a 63-year-old male with past medical history of orthostatic hypotension, previous syncope who presents emergency department for evaluation of syncope. Patient got a pacemaker placed in June with success at [facility]. He has been having syncopal episodes since May. Today he was sitting on a chair helder and began walking feeling lightheaded and lowered himself to the floor, no trauma. No chest pain, no other acute complaints at this time. Related Data Home Medications Medication Instructions Recorded Confirmed aripiprazole 5 mg tablet 1 tab PO DAILY Depression 06/09/17 07/13/23 tamsulosin 0.4 mg capsule 1 cap PO DAILY prostate 06/09/17 07/13/23 losartan 50 mg tablet 50 mg PO DAILY High blood pressure 08/27/22 07/13/23 amlodipine 5 mg tablet 5 mg PO DAILY 05/31/23 07/13/23 aspirin 81 mg tablet,delayed 81 mg PO DAILY 05/31/23 07/13/23 release famotidine 20 mg tablet 20 mg PO DAILY 05/31/23 07/13/23 atorvastatin 10 mg tablet 10 mg PO HS 07/13/23 07/13/23 Allergies Allergy/AdvReac Type Severity Reaction Status Date / Time No Known Allergies Allergy Verified 07/13/23 10:47 [facility] Disclaimer: The information contained in this section may have been updated after the patient was seen, as this information can be updated by other users. 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 ROS Obtained: Yes Systems reviewed as appropriate & no additional complaints except as documented Physical Exam General General appearance: alert and in no apparent distress Head Head exam: atraumatic and normocephalic Eye Eye exam: Present PERRL ENT ENT exam: Present mucous membranes moist Neck Neck exam: Present normal inspection Chest Chest inspection: Present normal inspection and symmetric chest wall rise Respiratory Respiratory exam: Present normal lung sounds bilaterally; Absent respiratory distress Cardiovascular Cardiovascular exam: Present regular rate and normal rhythm Abdominal Exam Abdominal exam: Present soft; Absent tenderness Extremities Exam Extremities exam: Present normal inspection Neurological Exam Neurological exam: Present alert; Absent motor sensory deficit Psychiatric Psychiatric exam: Present normal affect Skin Skin exam: Present warm and dry Medical Decision Making Medical Records Medical records reviewed: Yes I reviewed the patient's medical records. Kimo Inquiry Pt receiving controlled substance: No Vital Signs: 09/05/23 13:27 09/05/23 13:30 09/05/23 14:00 Temperature 97.3 F L Temperature Source Oral Pulse Rate 70 70 Pulse Rate [Right Radial] 70 Respiratory Rate 18 16 15 Blood Pressure 113/74 107/65 L Blood Pressure [Right Arm] 113/74 Blood Pressure Mean [Right Arm] 87 Blood Pressure Source Blood Pressure Source [Right Arm] Automatic Cuff Blood Pressure Position Blood Pressure Position [Right Arm] Supine 02 Sat by Pulse Oximetry 98 95 95 Oxygen Delivery Method Room Air Room Air Room Air 09/05/23 14:25 09/05/23 14:30 09/05/23 14:51 Temperature Temperature Source Pulse Rate 70 69 70 Pulse Rate [Right Radial] Respiratory Rate 18 16 18 Blood Pressure 103/65 L 90/60 L 108/66 L Blood Pressure [Right Arm] Blood Pressure Mean [Right Arm] Blood Pressure Source Automatic Cuff Blood Pressure Source [Right Arm] Blood Pressure Position Supine Blood Pressure Position [Right Arm] 02 Sat by Pulse Oximetry 94 L 93 L 97 Oxygen Delivery Method Room Air Room Air Room Air Lab Data Lab Results 09/05/23 13:30: WBC 10.2, RBC 5.59, Hgb 16.8, Hct 51.1, MCV 91.4, MCH 30.1, MCHC 33.0, RDW 14.8, Plt Count 245, MPV 9.6, Neut % (Auto) 74.3, Lymph % (Auto) 18.6, [place] % (Auto) 5.6, Eos % (Auto) 0.7, Baso % (Auto) 0.8, Neut # (Auto) 7.6, Lymph # (Auto) 1.9, [place] # (Auto) 0.6, Eos # (Auto) 0.1, Baso # (Auto) 0.1, Sodium 139, Potassium 3.6, Chloride 107, Carbon Dioxide 26, Anion Gap 9.6, BUN 17, C reatinine 1.50 H, Estimated Creat Clear 78, Estimated GFR 47 L, Est GFR ( Amer) 57 L, Glucose 110 H, Calcium 9.3, Total Bilirubin 1.2, AST 36, ALT 34, Alkaline Phosphatase 63, Troponin I 0.01, Total Protein 7.0, Albumin 4.0, Globulin 3.0, Albumin/Globulin Ratio 1.3 09/05/23 13:30 09/05/23 13:30 Orders (Tests/Meds): ED MEDICATIONS Generic Name Dose Route Start Last Admin Trade Name Freq PRN Reason Stop Dose Admin Lactated Ringer's 1,000 mls @ 999 mls/hr 09/05/23 14:10 09/05/23 14:16 Lactated Ringer's 1000 Ml Bag IV 09/05/23 15:10 999 mls/hr .Q1H1M ONE Administration ORDERS Category Date Time Status CXR --portable [XR chest portable] Stat Exams 09/05/23 13:56 Completed Complete Blood Count Auto Diff Stat Lab 09/05/23 13:30 Completed Comprehensive Metabolic Panel Stat Lab 09/05/23 13:30 Completed Troponin I Q3H Lab 09/05/23 16:45 Ordered Troponin I Q3H Lab 09/05/23 19:45 Ordered Troponin I Stat Lab 09/05/23 13:30 Completed ECG Data Tracing #1: Independently interpreted by me, rate is 69, rhythm is regular, atrially paced, no ST elevation in anatomical contiguous leads, QTc 403. Medical Decision Narrative: In summary patient is a 63-year-old male with past medical history described above who presents emergency department for evaluation of syncope. Patient is hemodynamically stable nontoxic-appearing upon arrival, afebrile. History and physical strongly consistent with vasovagal syncope. EKG is atrially paced with electrical and mechanical capture. Differential also includes pacemaker malfunction, electrolyte abnormality, among others. Workup be conducted with hematologic labs, chest x-ray, pacemaker interrogation. Workup reviewed by me, hematologic labs are remarkable for elevated creatinine for which crystalloid bolus will be conducted, no critical electrolyte abnormalities. Initial troponin within normal range and patient is not having any chest pain. Pacemaker was interrogated has 0 episodes that are abnormal, no alerts. Pacemaker appears to be functioning normally. Upon repeat evaluation patient was ambulatory bedside. Electrical and mechanical capture present. I suspect vasovagal syncope for which patient is appropriate for discharge and will follow-up with his it communications specialist and PCP for continued evaluation. Critical Care Critical Care Time Critical Care Time: No
[2023-09-05 13:59] LABS: Alanine Aminotransferase 34 U/L (12-78); Albumin/Globulin Ratio 1.3 (1.1-1.8); Alkaline Phosphatase 63 U/L (38-126); Anion Gap 9.6 mEq/L (5-15); Aspartate Amino Transferase 36 U/L (17-59); Bilirubin,Total 1.2 mg/dl (0.2-1.3); Blood Urea Nitrogen 17 mg/dl (9-20); Carbon Dioxide 26 mmol/L (22.0-30.0); Creatinine Clearance Estimated 78 mL/min (50-200); Estimated Glomerular Filt Rate 47 ml/min (>60); GFR (African American) 57 ML/MIN (>60)
[2023-09-05 14:00] LABS: Calcium 9.3 mg/dl (8.4-10.2); Glucose 110 mg/dl (74-100)
--- NOTE | 2023-09-05 14:13 | PC.NURSE ---
portable xray at bedside
[2023-09-05] MEDS: LACTATED RINGERS 1000ML 1,000 ML 999 ML IV (14:16)
[2023-09-05 14:17] LABS: Troponin I 0.01 ng/ml (0.00-0.034)
--- NOTE | 2023-09-05 14:44 | PC.NURSE ---
pacemaker interrogated.
--- NOTE | 2023-09-05 14:45 | PC.NURSE ---
ROUNDED ON PT NO NEEDS AT THIS TIME CALL LIGHT IN REACH
--- NOTE | 2023-09-05 15:02 | PC.NURSE ---
er at bedside updating pt
== END 2023-09-05 16:38 | disposition home or self-care (01) ==
PROVIDERS: Emergency Provider Emergency Medicine; PCP Family Medicine
DX: R55 Syncope and collapse (principal); Z95.0 Presence of cardiac pacemaker; N17.8 Other acute kidney failure; I10 Essential (primary) hypertension
CPT/HCPCS: 71045; 80053; 84484; 85025; 93005; 96360; 99284